=== PATIENT | male | born 1930 | race Caucasian/White ===

== ENCOUNTER 2017-07-17 11:20 | Inpatient (IN) | payer MEDICARE ==
[~2017-07-17] VITALS: Ht 175.3 cm; Wt 75.2 kg
[2017-07-17 11:27] VITALS: BP 161/78; PULSE 71; RESP 16; TEMP 97.8; O2SAT 99
--- NOTE | 2017-07-17 11:51 | PD ---
HPI Chief Complaint: General Weakness Time Seen by Provider: 11:40 Travel History International Travel<30 days: No Contact w/Intl Traveler<30days: No Traveled to known affect area: No History of Present Illness HPI This patient developed garbled speech and aphasia 4 days ago. Around 9 PM. He also had weakness in his legs at that time. He went to bed and woke up in the morning feeling back to his usual self. He drove down from [place] as a snowbird. Morning he woke up with the same symptoms of garbled speech and difficulty finding words and some generalized type weakness. No sensory loss. No headache. He takes Coumadin for history of A. fib. No prior history of neurologic disease. Duration waxing and waning over 4 days. No alleviating factors. No exacerbating factors. PFSH Social History Alcohol Use: No Tobacco Use: No Substance Use: No Review of Systems General / Constitutional: No: Fever Eyes: No: Visual changes HENT: No: Headaches Cardiovascular: Positive: Irregular Rhythm, No: Chest Pain or Discomfort Respiratory: No: Shortness of Breath Gastrointestinal: No: Abdominal Pain Genitourinary: No: Dysuria Musculoskeletal: No: Pain Skin: No Rash Neurologic: Positive: Weakness, Slurred Speech Psychiatric: No: Depression Endocrine: No: Polydipsia Hematologic/Lymphatic: No: Easy Bruising Physical Exam Narrative GENERAL: Well-nourished, well-developed patient in no apparent distress. SKIN: Focused skin assessment reveals no rash and nodules. Skin is Warm and dry. HEAD: Atraumatic. Normocephalic. EYES: Pupils equal and round. No scleral icterus. No injection or drainage. ENT: No nasal bleeding or discharge. Mucous membranes pink and moist. NECK: Trachea midline. No JVD. CARDIOVASCULAR: Irregularly irregular rhythm. No murmur appreciated. RESPIRATORY: No accessory muscle use. Clear to auscultation. Breath sounds equal bilaterally. GASTROINTESTINAL: Abdomen soft, non-tender, nondistended. Hepatic and splenic margins not palpable. MUSCULOSKELETAL: No obvious deformities. No clubbing. No cyanosis. No edema. NEUROLOGICAL: Awake and alert. No obvious cranial nerve deficits. Motor grossly within normal limits. Speech is very abnormal. It is garbled and he seems to have some word salad, difficulty finding the right word. He does not seem confused. I don't see a definite facial droop PSYCHIATRIC: Appropriate mood and affect; insight and judgment normal. Data Data Last Documented VS Vital Signs Date Time Temp Pulse Resp B/P (MAP) Pulse Ox O2 Delivery O2 Flow Rate FiO2 07/17/17 11:27 97.8 71 16 161/78 (105) 99 Orders Orders Prothrombin Time / Inr (Pt) (07/17/17 11:46) Complete Blood Count With Diff (07/17/17 11:46) Basic Metabolic Panel (Bmp) (07/17/17 11:46) Ct Brain W/O Iv Contrast(Rout) (07/17/17 11:46) Ecg Monitoring (07/17/17 11:46) Iv Access Insert/Monitor (07/17/17 11:46) Oximetry (07/17/17 11:46) Admit Order (Ed Use Only) (07/17/17 12:53) Labs Laboratory Tests Test 07/17/17 12:08 White Blood Count 6.0 TH/MM3 Red Blood Count 4.26 MIL/MM3 Hemoglobin 10.1 GM/DL Hematocrit 32.6 % Mean Corpuscular Volume 76.6 FL Mean Corpuscular Hemoglobin 23.8 PG Mean Corpuscular Hemoglobin Concent 31.1 % Red Cell Distribution Width 16.3 % Platelet Count 257 TH/MM3 Mean Platelet Volume 8.9 FL Neutrophils (%) (Auto) 69.4 % Lymphocytes (%) (Auto) 14.4 % Monocytes (%) (Auto) 12.3 % Eosinophils (%) (Auto) 2.7 % Basophils (%) (Auto) 1.2 % Neutrophils # (Auto) 4.1 TH/MM3 Lymphocytes # (Auto) 0.9 TH/MM3 Monocytes # (Auto) 0.7 TH/MM3 Eosinophils # (Auto) 0.2 TH/MM3 Basophils # (Auto) 0.1 TH/MM3 CBC Comment AUTO DIFF Prothrombin Time 28.2 SEC Prothromb Time International Ratio 2.8 RATIO Blood Urea Nitrogen 16 MG/DL Creatinine 1.10 MG/DL Random Glucose 126 MG/DL Calcium Level 8.6 MG/DL Sodium Level 138 MEQ/L Potassium Level 4.1 MEQ/L Chloride Level 103 MEQ/L Carbon Dioxide Level 25.9 MEQ/L Anion Gap 9 MEQ/L Estimat Glomerular Filtration Rate 63 ML/MIN MDM Medical Decision Making Medical Screen Exam Complete: Yes Emergency Medical Condition: Yes Medical Record Reviewed: Yes Differential Diagnosis Intracranial hemorrhage, ischemic CVA, TIA Narrative Course I have reviewed the patient's electronic medical record. IV placed CBC shows minor anemia Metabolic profile is normal INR on Coumadin is 2.8 Extended cardiac monitoring reveals A. fib which is chronic but rate controlled Brain CT is negative Patient symptoms started 4 days ago. He also woke up this morning with the speech deficits. Therefore he clearly is not a stroke alert and is not in any sort of 4-6 hour window. He is not a TPA candidate. He has persistent neurologic deficit consistent with acute ischemic stroke Reviewed with Dr. Edwards will admit for further neurologic evaluation Diagnosis Primary Impression: Neurologic deficit due to acute ischemic cerebrovascular accident (CVA) Admitting Information Admitting Physician Requests: Admit Bry Gama MD Jul 17, 2017 11:51
[2017-07-17 12:30] LABS: AUTOMATED NEUTROPHIL # 4.1 TH/MM3 (1.8-7.7); BASOPHIL # 0.1 TH/MM3 (0-0.2); BASOPHIL % 1.2 % (0.0-2.0); EOSINOPHIL # 0.2 TH/MM3 (0-0.4); EOSINOPHIL % 2.7 % (0.0-4.0); HEMATOCRIT 32.6 % (39.0-51.0); HEMOGLOBIN 10.1 GM/DL (13.0-17.0); LYMPH % 14.4 % (9.0-44.0); LYMPHOCYTE # 0.9 TH/MM3 (1.0-4.8); MEAN CELL VOLUME 76.6 FL (80.0-100.0); MEAN CORPUSCULAR HEMOGLOBIN 23.8 PG (27.0-34.0); MEAN CORPUSCULAR HGB CONC 31.1 % (32.0-36.0); MEAN PLATELET VOLUME 8.9 FL (7.0-11.0); MONO % 12.3 % (0.0-8.0); MONOCYTE # 0.7 TH/MM3 (0-0.9); NEUT % 69.4 % (16.0-70.0); PLATELET COUNT 257 TH/MM3 (150-450); RED BLOOD COUNT 4.26 MIL/MM3 (4.50-5.90); RED CELL DISTRIBUTION WIDTH 16.3 % (11.6-17.2)
--- NOTE | 2017-07-17 12:31 | RADRPT ---
EXAM DATE/TIME: 07/17/2017 12:07 [facility] COMPARISON: No previous studies available for comparison. INDICATIONS : Intermittent garbled speech and aphasia x 4 days. Fell this morning. Evaluate for cerebrovascula r accident. RADIATION DOSE: 64.87 CTDIvol (mGy) MEDICAL HISTORY : None SURGICAL HISTORY : None. ENCOUNTER: Initial ACUITY: 4 - 6 days PAIN SCALE: 4/10 LOCATION: cranial TECHNIQUE: Multiple contiguous axial images were obtained of the head. Using automated exposure control and adj ustment of the mA and/or kV according to patient size, radiation dose was kept as low as reasonably a chievable to obtain optimal diagnostic quality images. DICOM format image data is available electro nically for review and comparison. FINDINGS: CEREBRUM: The ventricles are normal for age. No evidence of midline shift, mass lesion, hemorrhage or acute in farction. No extra-axial fluid collections are seen. POSTERIOR FOSSA: The cerebellum and brainstem are intact. The 4th ventricle is midline. The cerebellopontine angle i s unremarkable. EXTRACRANIAL: The visualized portion of the orbits is intact. Right ethmoid and maxillary sinus disease. SKULL: The calvaria is intact. No evidence of skull fracture. CONCLUSION: 1. No acute intracranial abnormalities. Partial opacification ethmoid air cells. Mucosal thickening r ight maxillary sinus. Tremayne Kennedy MD on July 17, 2017 at 12:27 Board Certified Radiologist. This report was verified electronically.
[2017-07-17 12:41] LABS: CALCIUM 8.6 MG/DL (8.5-10.1); INTERNATIONAL NORMALIZED RATIO 2.8 RATIO; PROTHROMBIN TIME - PATIENT 28.2 SEC (9.8-11.6)
[2017-07-17 12:42] LABS: BICARBONATE 25.9 MEQ/L (21.0-32.0)
[2017-07-17 12:45] LABS: CREATININE 1.1 MG/DL (0.60-1.30)
[2017-07-17 13:34] VITALS: BP 152/76; PULSE 75; RESP 18; O2SAT 96
[2017-07-17 13:35] LABS: STOMATOCYTES 1+ (NORMAL)
[2017-07-17 15:05] VITALS: BP 129/69; PULSE 68; RESP 18; TEMP 100.8; O2SAT 95
--- NOTE | 2017-07-17 15:15 | HHI.HP ---
HPI Service [facility] Primary Care Physician Unknown Admission Diagnosis acute ischemic CVA Diagnoses: Chief Complaint: garbled speech Travel History International Travel<30 Days: No Contact w/Intl Traveler <30 Da: No Traveled to Known Affected Are: No History of Present Illness This patient a very pleasant 87-year-old [facility] gentleman who arrived in our emergency room 4 days after some garbled speech occurred. His is at the bedside and reports that he return back from an extended stay in [place] where he is originally from the beginning of June. On the they drove from [place] to [place] and began having some garbled speech. He stumbled and fell but he would back to sleep and his let him rest. The next morning he was back to normal. This morning however the garbled speech returned and the patient lost his balance again. He is now in the emergency room with significant expressive aphasia however he is aware that his warts or not making sense. About every third word is miscellaneous. He has not had any headache or fever. He reports 4 days of congestion and a choking in his chest. His says he thinks he has a cold because she is coughing to. There have been no fevers or chills. He does have atrial fibrillation for which she takes Coumadin as well as cardiac disease. He has a stent. His medications are not available at this time. He has not remember any allergies the patient has been recommended for further evaluation by the neurological medical teams Review of Systems Constitutional: DENIES: Diaphoretic episodes, Fatigue, Fever, Weight gain, Weight loss, Chills, Dizziness, Change in appetite, Night Sweats Endocrine: DENIES: Heat/cold intolerance, Polydipsia, Polyuria, Polyphagia Eyes: DENIES: Blurred vision, Diplopia, Eye inflammation, Eye pain, Vision loss , Photosensitivity, Double Vision Ears, nose, mouth, throat: DENIES: Tinnitus, Hearing loss, Vertigo, Nasal discharge, Oral lesions, Throat pain, Hoarseness, Ear Pain, Running Nose, Epistaxis, Sinus Pain, Toothache, Odynophagia Respiratory: DENIES: Apneas, Cough, Snoring, Wheezing, Hemoptysis, Sputum production, Shortness of breath Cardiovascular: DENIES: Chest pain, Palpitations, Syncope, Dyspnea on Exertion , PND, Lower Extremity Edema, Orthopnea, Claudication Gastrointestinal: DENIES: Abdominal pain, Black stools, Bloody stools, Constipation, Diarrhea, Nausea, Vomiting, Difficulty Swallowing, Anorexia Genitourinary: DENIES: Sexual dysfunction, Urinary frequency, Urinary incontinence, Urgency, Hematuria, Dysuria, Nocturia, Penile Discharge, Testicular Pain, Testicular Swelling Musculoskeletal: DENIES: Joint pain, Muscle aches, Stiffness, Joint Swelling, Back pain, Neck pain Hematologic/lymphatic: DENIES: Bruising, Lymphadenopathy Immunologic/allergic: DENIES: Eczema, Urticaria Neurologic: COMPLAINS OF: Speech Problems, Poor Balance, DENIES: Abnormal gait , Headache, Localized weakness, Paresthesias, Seizures, Tremor Psychiatric: DENIES: Anxiety, Confusion, Mood changes, Depression, Hallucinations, Agitation, Suicidal Ideation, Homicidal Ideation, Delusions Except as stated in HPI: all other systems reviewed are Neg Past Family Social History Past Medical History Atrial fibrillation Past Surgical History Rotator cuff Cardiac stent Bilateral hip Reported Medications Reviewed in the EMR however the list is unavailable Patient does not recall his medications and does take warfarin Active Ordered Medications Reviewed in the EMR Family History No strokes, diabetes or hypertension All his family is in [place] Social History No tobacco or alcohol dependency Lives in [place] half year and drives in and RV with his family Physical Exam Vital Signs Vital Signs Date Time Temp Pulse Resp B/P (MAP) Pulse Ox O2 Delivery O2 Flow Rate FiO2 07/17/17 13:34 75 18 152/76 (101) 96 Room Air 07/17/17 11:27 97.8 71 16 161/78 (105) 99 Physical Exam GENERAL: This is a well-nourished, well-developed patient, in no apparent distress. SKIN: No rashes, ecchymoses or lesions. Cool and dry. HEAD: Atraumatic. Normocephalic. No temporal or scalp tenderness. EYES: Pupils equal round and reactive. Extraocular motions intact. No scleral icterus. No injection or drainage. ENT: Nose without bleeding, purulent drainage or septal hematoma. Throat without erythema, tonsillar hypertrophy or exudate. Uvula midline. Airway patent. NECK: Trachea midline. No JVD or lymphadenopathy. Supple, nontender, no meningeal signs. CARDIOVASCULAR: Regular rate and rhythm without murmurs, gallops, or rubs. RESPIRATORY: Clear to auscultation. Breath sounds equal bilaterally. No wheezes , rales, or rhonchi. GASTROINTESTINAL: Abdomen soft, non-tender, nondistended. No hepato-splenomegaly , or palpable masses. No guarding. MUSCULOSKELETAL: Extremities without clubbing, cyanosis, or edema. No joint tenderness, effusion, or edema noted. No calf tenderness. Negative Homans sign bilaterally. NEUROLOGICAL: Awake and alert. Cranial nerves II through XII intact. Motor and sensory grossly within normal limits. Five out of 5 muscle strength in all muscle groups. Expressive aphasia Laboratory Laboratory Tests Test 07/17/17 12:08 White Blood Count 6.0 Red Blood Count 4.26 Hemoglobin 10.1 Hematocrit 32.6 Mean Corpuscular Volume 76.6 Mean Corpuscular Hemoglobin 23.8 Mean Corpuscular Hemoglobin Concent 31.1 Red Cell Distribution Width 16.3 Platelet Count 257 Mean Platelet Volume 8.9 Neutrophils (%) (Auto) 69.4 Lymphocytes (%) (Auto) 14.4 Monocytes (%) (Auto) 12.3 Eosinophils (%) (Auto) 2.7 Basophils (%) (Auto) 1.2 Neutrophils # (Auto) 4.1 Lymphocytes # (Auto) 0.9 Monocytes # (Auto) 0.7 Eosinophils # (Auto) 0.2 Basophils # (Auto) 0.1 CBC Comment AUTO DIFF Differential Comment AUTO DIFF CONFIRMED Platelet Estimate NORMAL Platelet Morphology Comment NORMAL Stomatocytes 1+ Prothrombin Time 28.2 Prothromb Time International Ratio 2.8 Blood Urea Nitrogen 16 Creatinine 1.10 Random Glucose 126 Calcium Level 8.6 Sodium Level 138 Potassium Level 4.1 Chloride Level 103 Carbon Dioxide Level 25.9 Anion Gap 9 Estimat Glomerular Filtration Rate 63 Result Diagram: 07/17/17 1208 07/17/17 1208 Imaging Last Impressions Head CT 07/17/17 1146 Signed Impressions: Service Date/Time: July 12:07 - CONCLUSION: 1. No acute intracranial abnormalities. Partial opacification ethmoid air cells. Mucosal thickening right maxillary sinus. MD Mya James VTE Risk Assessment Caprini VTE Risk Assessment: Mod/High Risk (score >= 2) Caprini Risk Assessment Model Point Value = 1 Point Value = 2 Point Value = 3 Point Value = 5 Age 41-60 Minor surgery BMI > 25 kg/m2 Swollen legs Varicose veins or History of unexplained or recurrent spontaneous Oral contraceptives or hormone replacement Sepsis (< 1 month) Serious lung disease, including pneumonia (< 1 month) Abnormal pulmonary function Acute myocardial infarction Congestive heart failure (< 1 month) History of inflammatory bowel disease Medical patient at bed rest Age 61-74 Arthroscopic surgery Major open surgery (> 45 min) Laparoscopic surgery (> 45 min) Malignancy Confined to bed (> 72 hours) Immobilizing plaster cast Central venous access Age >= 75 History of VTE Family history of VTE Factor V Leiden Prothrombin [id number] Lupus anticoagulant Anticardiolipin antibodies Elevated serum homocysteine Heparin-induced thrombocytopenia Other congenital or acquired thrombophilia Stroke (< 1 month) Elective arthroplasty Hip, pelvis, or leg fracture Acute spinal cord injury (< 1 month) Prophylaxis Regimen Total Risk Factor Score Risk Level Prophylaxis Regimen 0-1 Low Early ambulation 2 Moderate Order ONE of the following: *Sequential Compression Device (SCD) *Heparin 5000 units SQ BID 3-4 Higher Order ONE of the following medications: *Heparin 5000 units SQ TID *Enoxaparin/Lovenox 40 mg SQ daily (WT < 150 kg, CrCl > 30 mL/min) *Enoxaparin/Lovenox 30 mg SQ daily (WT < 150 kg, CrCl > 10-29 mL/min) *Enoxaparin/Lovenox 30 mg SQ BID (WT < 150 kg, CrCl > 30 mL/min) AND/OR *Sequential Compression Device (SCD) 5 or more Highest Order ONE of the following medications: *Heparin 5000 units SQ TID (Preferred with Epidurals) *Enoxaparin/Lovenox 40 mg SQ daily (WT < 150 kg, CrCl > 30 mL/min) *Enoxaparin/Lovenox 30 mg SQ daily (WT < 150 kg, CrCl > 10-29 mL/min) *Enoxaparin/Lovenox 30 mg SQ BID (WT < 150 kg, CrCl > 30 mL/min) AND *Sequential Compression Device (SCD) Assessment and Plan Problem List: (1) Afib ICD Code: I48.91 - Unspecified atrial fibrillation Plan: Patient takes warfarin Rate is controlled (2) Neurologic deficit due to acute ischemic cerebrovascular accident (CVA) ICD Code: I63.9 - Cerebral infarction, unspecified; R29.818 - Other symptoms and signs involving the nervous system Status: Acute Plan: Rule out stroke patient with expressive aphasia and imaging are pending All of the electrolytes INR 2.8 and patient is anticoagulated Physician Certification 2 Midnight Certification Type: Admission for Inpatient Services Order for Inpatient Services The services are ordered in accordance with Medicare regulations or non- Medicare payer requirements, as applicable. In the case of services not specified as inpatient-only, they are appropriately provided as inpatient services in accordance with the 2-midnight benchmark. Estimated LOS (days): 2 2 days is the estimated time the patient will need to remain in the hospital, assuming treatment plan goals are met and no additional complications. Post-Hospital Plan: Humaira Morris MD Jul 17, 2017 15:15
[2017-07-17 16:30] VITALS: BP 157/76; PULSE 70; RESP 24; TEMP 101.1; O2SAT 95
[2017-07-17] MEDS ORDERED: ACETAMINOPHEN 325 MG TAB PO PRN (17:15)
[2017-07-17] MEDS ORDERED: IOHEXOL 350 MG/ML 10 ML VIAL (for RAD DIAG) IVCONTRAST ONE (18:30)
--- NOTE | 2017-07-17 18:58 | RADRPT ---
EXAM DATE/TIME: 07/17/2017 18:42 [facility] COMPARISON: No previous studies available for comparison. INDICATIONS : Short of breath and productive cough since this morning. MEDICAL HISTORY : None. SURGICAL HISTORY : None. ENCOUNTER: Initial ACUITY: 1 day PAIN SCORE: 0/10 LOCATION: Bilateral chest FINDINGS: There is cardiomegaly and reticular nodular infiltrate seen in the right mid to lower lung zone and t o a lesser extent left mid to lower lung. Mild diffuse interstitial prominence. Osseous structures de monstrate high riding humeral heads bilaterally consistent with rotator cuff pathology. CONCLUSION: Bilateral interstitial and reticular nodular infiltrates. Scott Valdes MD on July 17, 2017 at 18:55 Board Certified Radiologist. This report was verified electronically.
--- NOTE | 2017-07-17 19:11 | MB ---
cc: ISAÍAS ORDONEZ MD DATE OF CONSULTATION 07/17/17 REASON FOR CONSULTATION "Brain attack." HISTORY OF PRESENT ILLNESS Mr. Gutierrez is a 89-year-old [place] male who arrived to [facility] emergency room this morning because of his slurred speech that has been ongoing for four days. The patient is a poor historian, however, the who is at the bedside reports that he recently returned back from [place] where he is originally from at the beginning of June and on July 13, he drove from [place] to [place] and began having some slurred speech. She reports that he was unsteady and fell two times. The next morning he was normal , but again this morning his slurred speech and unsteadiness and imbalance started again. The patient denies headache, double vision, numbness of the face or weakness of an extremity. However, he reports dizziness, nausea and, during the encounter, he was nauseated with retching but no vomiting. The thinks that he has a cold. The patient denies any history of stroke or recent head injury. REVIEW OF SYSTEMS A 12-point review of systems is negative except for what is stated in the HPI. PAST MEDICAL HISTORY Atrial fibrillation on Coumadin. PAST SURGICAL HISTORY 1. Rotator cuff surgery 2. Cardiac stents 3. Bilateral hip replacement. MEDICATIONS Coumadin. FAMILY HISTORY Not relevant. SOCIAL HISTORY Denies tobacco, alcohol or illicit drugs. PHYSICAL EXAMINATION GENERAL: Awake, alert, poor historian, slurred speech. Mild distress due to nausea. HEENT: Atraumatic, normocephalic. [id number]. intact vision. NECK: Supple. No signs of meningeal irritation. CARDIOVASCULAR: Regular rate and rhythm. RESPIRATORY: Clear to auscultation. No wheezes. GASTROINTESTINAL: Soft abdomen, nontender. MUSCULOSKELETAL: No clubbing, cyanosis or edema. NEUROLOGIC: Awake, alert, oriented to time, person and place, dysarthria. Mild deviation of the tongue to the right sluggish, bilateral elevation and subtle horizontal nystagmus to the right greater than the left, no diplopia. No ptosis. No dysphasia. Upper and lower extremity 5/5 with some give-away due to pain secondary to rheumatoid arthritis. Sensation is intact throughout. Reflexes 1+ bilateral symmetrical. Plantars are bilaterally downgoing. Finger- nose, past-pointing dysmetria, left greater than right. [id number] abnormal bilateral. PSYCHIATRIC: Normal mood and behavior. Mild distress due to nausea. No hallucinations. LABORATORY DATA White blood cell six, hemoglobin 10, platelets 257. BUN 16, creatinine 1.1, random glucose 156, calcium 8.6, sodium 138, potassium 4.1, anion gap nine. IMAGING STUDIES - Head CT scan without contrast was reported with no acute intracranial abnormalities, partial opacification of ethmoid air cells because of thickening right maxillary sinus. - I personally reviewed the head CT scan that showed moderate to severe cortical atrophy with dilated ventricles, no midline shift. Probable/ questionable hypodensity in the right cerebellar region. Diagnostic Impression: Possible posterior circulation stroke given the speech difficulty, nystagmus, incoordination and abnormal cerebellar function upper and lower extremities with history of coronary artery disease, atrial fibrillation on Coumadin. PLAN 1. I discussed the case with the registered nurse and I explained to the that the patient needs to be transferred to an intensive care unit for close monitoring of the vital signs because of a suspicion of posterior circulation stroke. 2. Main goal blood pressure 135-140/75-80. 3. Fall precautions. 4. MRI brain with and without contrast, MRA head with and without contrast, carotid ultrasound. 5. In the condition, the patient cannot perform MRI due to metal/hip replacement then he can proceed to a CTA head and CTA neck with contrast. 5. Nothing by mouth 6. Speech therapy recommendations are appreciated. 7. Physical therapy recommendations are appreciated. 8. Telemetry. 9. Cardiac echo. 10. Aspirin 325 mg. 11. DVT prophylaxis Thank you for the opportunity to participate in the care of your patient. MD PHILOMENA Gonzalez/ /5:01 PM /6:34 PM PAL
--- NOTE | 2017-07-17 19:28 | RADRPT ---
EXAM DATE/TIME: 07/17/2017 18:25 [facility] COMPARISON: CT BRAIN W/O CONTRAST, July 17, 2017, 12:07. INDICATIONS : Intermittent garbled speech and aphasia x 4 days. Fell this morning. Evaluate for cerebrovascular a ccident. IV CONTRAST: 85 cc Omnipaque 350 (iohexol) IV ; Cumulative dose for multiple exams. RADIATION DOSE: 42.25 CTDIvol (mGy) ; Combined studies MEDICAL HISTORY : None SURGICAL HISTORY : None. ENCOUNTER: Initial ACUITY: 1 day PAIN SCALE: 0/10 LOCATION: cranial TECHNIQUE: Volumetric scanning was performed using a multi-row detector CT scanner. The data was post processed with a variety of visualization algorithms including full volume maximum intensity projection, multi -planar sliding thin slab reformation, curved planar reformation, and surface rendering techniques. Using automated exposure control and adjustment of the mA and/or kV according to patient size, radiat ion dose was kept as low as reasonably achievable to obtain optimal diagnostic quality images. DICO M format image data is available electronically for review and comparison. FINDINGS: There is excellent visualization of the major intracranial arteries out to the second-order branch ve ssels. There is no evidence for aneurysm, vessel truncation or stenosis, and no evidence for vascula r malformation. The thyroid is heterogeneous and multinodular including a nodule at the midline measuring 1.8 x 2.2 c m on axial image 26. CONCLUSION: No intracranial stenosis or aneurysm identified. Scott Valdes MD on July 17, 2017 at 19:21 Board Certified Radiologist. This report was verified electronically.
--- NOTE | 2017-07-17 19:31 | RADRPT ---
EXAM DATE/TIME: 07/17/2017 18:25 [facility] COMPARISON: CTA BRAIN W 3D RECON, July 17, 2017, 18:25. CT BRAIN W/O CONTRAST, July 17, 2017, 12:07. INDICATIONS : Intermittent garbled speech and aphasia x 4 days. Fell this morning. Evaluate for cerebrovascular a ccident. IV CONTRAST: 85 cc Omnipaque 350 (iohexol) IV ; Cumulative dose for multiple exams. RADIATION DOSE: 42.25 CTDIvol (mGy) ; Combined studies MEDICAL HISTORY : None SURGICAL HISTORY : None. ENCOUNTER: Initial ACUITY: 1 day PAIN SCALE: 0/10 LOCATION: neck Elevated flow velocities and ICA/CCA ratios have been found to correlate with increased degrees of vessel stenosis, calculated as percentage of diameter relative to a normal segment of distal ICA/CCA. TECHNIQUE: Volumetric scanning was performed using a multirow detector CT scanner. The data was post processed with a variety of visualization algorithms including full-volume maximum intensity projection, multip lanar sliding thin-slab reformation, curved-planar reformation, and surface-rendering techniques. Us ing automated exposure control and adjustment of the mA and/or kV according to patient size, radiatio n dose was kept as low as reasonably achievable to obtain optimal diagnostic quality images. DICOM f ormat image data is available electronically for review and comparison. FINDINGS: AORTIC ARCH: There is a three-vessel origin of the great vessels from the aorta. No evidence of ostial narrowing. There is circumferential nonhemodynamically significant calcific plaque at the origin of the right s ubclavian artery. RIGHT CAROTID: The common carotid artery is intact. The carotid bulb has a normal configuration without ulceration o r narrowing. The internal carotid artery lumen is smooth without stenosis. The external carotid andres ry is intact. Mild calcific plaquing at the bifurcation. LEFT CAROTID: The common carotid artery is intact. The carotid bulb has a normal configuration without ulceration or narrowing. The internal carotid artery lumen is smooth without stenosis. The external carotid ar terry is intact. Mild calcific plaquing at the bifurcation. VERTEBRALS: The vertebral arteries have a symmetric diameter. No stenotic lesions are seen. CONCLUSION: Mild atherosclerosis without evidence for hemodynamically significant stenosis. 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 Scott Valdes MD on July 17, 2017 at 19:28 Board Certified Radiologist. This report was verified electronically.
[2017-07-17 20:00] VITALS: BP 158/67; PULSE 68; RESP 26; TEMP 98.3; O2SAT 96
[2017-07-18] VITALS (11 sets, daily range): BP systolic 110–136; BP diastolic 59–76; PULSE 52–74; RESP 14–30; TEMP 97.2–98.8; O2SAT 91–96
[2017-07-18 06:17] LABS: INTERNATIONAL NORMALIZED RATIO 2.1 RATIO; PROTHROMBIN TIME - PATIENT 21.4 SEC (9.8-11.6)
[2017-07-18] MEDS ORDERED: WARF-23 PO (09:02)
[2017-07-18] MEDS ORDERED: LANO0.252 PO (09:02)
[2017-07-18] MEDS ORDERED: RAMI2.5C PO (09:02)
[2017-07-18] MEDS ORDERED: CARV3.12 PO (09:02)
[2017-07-18] MEDS ORDERED: FURO1TAB62 PO (09:02)
[2017-07-18] MEDS ORDERED: VITA10002 PO (09:02)
[2017-07-18] MEDS ORDERED: POTA-255 PO (09:02)
[2017-07-18] MEDS ORDERED: NON-FORMULARY DRUG (Potassium Gluconate (Potassium) 1 TAB) PO SCH (14:30)
--- NOTE | 2017-07-18 14:39 | ECHRPT ---
Indication: CVA/TIA CONCLUSIONS Normal left ventricular size. Wall thickness is normal. The left ventricular systolic function is grossly normal on limited imaging. The left atrial size is pjaestzg-sw-itgccuib dilated. The right atrial size is moderately dilated. Anterior mitral valve leaflet prolapse. The mitral valve regurgitation jet is directed posteriorly. Moderate mitral valve regurgitation. There is moderate to severe tricuspid valve regurgitation. The estimated pulmonary arterial pressure is 42.3 mmHg. Trivial pulmonary valve regurgitation. BP: 110 / 63 HR: 52 Rhythm: Sinus MEASUREMENTS (Male / Female) Normal Values Technical Quality:Fair 2D ECHO LV Diastolic Diameter PLAX 5.6 cm 4.2 - 5.9 / 3.9 - 5.3 cm LV Systolic Diameter PLAX 3.6 cm IVS Diastolic Thickness 0.9 cm 0.6 - 1.0 / 0.6 - 0.9 cm LVPW Diastolic Thickness 0.9 cm 0.6 - 1.0 / 0.6 - 0.9 cm LV Relative Wall Thickness 0.3 RV Internal Dim ED PLAX 2.8 cm LVOT Diameter 2.2 cm Aortic Root Diameter 3.3 cm LA Systolic Diameter LX 3.9 cm 3.0 - 4.0 / 2.7 - 3.8 cm LA Volume Index 113.4 cm/m 16 - 28 cm/m M-MODE AV Cusp Separation MM 1.9 cm DOPPLER AV Peak Velocity 152.0 cm/s AV Peak Gradient 9.2 mmHg AV Mean Gradient 5.0 mmHg AV Velocity Time Integral 30.3 cm LVOT Peak Velocity 88.7 cm/s LVOT Peak Gradient 3.1 mmHg LVOT Velocity Time Integral 15.1 cm LVOT Cardiac Index 1584.2 cm/minm AV Area Cont Eq vti 1.9 cm AV Area Cont Eq pk 2.2 cm Mitral E Point Velocity 125.0 cm/s Mitral A Point Velocity 44.9 cm/s Mitral E to A Ratio 2.8 LV E' Lateral Velocity 11.2 cm/s Mitral E to LV E' Lateral Ratio 11.2 LV E' Septal Velocity 9.1 cm/s Mitral E to LV E' Septal Ratio 13.8 TR Peak Velocity 284.0 cm/s TR Peak Gradient 32.3 mmHg Right Atrial Pressure 10.0 mmHg Pulmonary Artery Systolic Pressu 42.3 mmHg Right Ventricular Systolic Press 42.3 mmHg PV Peak Velocity 69.9 cm/s PV Peak Gradient 2.0 mmHg FINDINGS LEFT VENTRICLE Normal left ventricular size. Wall thickness is normal. The left ventricular systolic function is grossly normal on limited imaging. RIGHT VENTRICLE Normal right ventricular size and systolic function. LEFT ATRIUM The left atrial size is ckyftdjw-nd-ztozlnmr dilated. RIGHT ATRIUM The right atrial size is moderately dilated. ATRIAL SEPTUM Normal atrial septal thickness without atrial level shunting by limited color doppler interrogation. AORTA The aortic root and proximal ascending aorta are normal in size on limited imaging. MITRAL VALVE Anterior mitral valve leaflet prolapse. The mitral valve regurgitation jet is directed posteriorly. Moderate mitral valve regurgitation. AORTIC VALVE Trileaflet aortic valve. No aortic valve stenosis or regurgitation. TRICUSPID VALVE There is moderate to severe tricuspid valve regurgitation. The estimated pulmonary arterial pressure is 42.3 mmHg. PULMONARY VALVE Trivial pulmonary valve regurgitation. VESSELS The inferior vena cava is normal in size. PERICARDIUM No pericardial effusion. Ricki Dyer MD (Electronically Signed) Final Date:18 July 2017 14:38
--- NOTE | 2017-07-18 14:48 | HHI.PR ---
Review/Management Diagnosis - Likely a posterior circulation stroke, given the speech difficulty, nystagmus , incoordination and abnormal cerebellar function upper and lower extremities with history of coronary artery disease, atrial fibrillation on Coumadin. MRI brain was not done. CT scan is less sensitive to show evidence of stroke in this region of the brain Plan - I explained to the patient and that patient needs to follow up with PCP, which he currently does not have, since his PCP is in [place] and the other one is in [place]. - Consult case management, recommendations are appreciated - Goal blood pressure 135-140/75-80. - Fall precautions. - MRI brain with and without contrast. - Speech therapy recommendations are appreciated. - Physical therapy recommendations are appreciated. - Continue Coumadin - Needs rehabilitation for imbalance - Follow up outpatient neurology - Please call for questions Diagnosis/Plan: Subjective Subjective Comments No events reported over night Patient sits on a chair with at bed side Denies double vision, difficulty in swallowing Walked with PT using a walker, with mild imbalance MRI brain was not done due to possible non compatible hip replacement device Head CTA & Neck CTA were reported as unremarkable Active Medications Current Medications Medications (Trade) Dose Ordered Sig/Jocelyn Route Start Time Stop Time Status Last Admin (Tylenol) 650 mg Q4H PRN PO 07/17/17 17:15 (Coreg) 3.125 mg BID PO 07/18/17 21:00 (Vitamin B12) 1,000 mcg DAILY PO 07/18/17 15:00 (Lanoxin) 0.25 mg DAILY PO 07/18/17 15:00 (Lasix) 20 mg BID@0900,1800 PO 07/18/17 18:00 (Altace) 2.5 mg DAILY PO 07/18/17 15:00 (Coumadin) 5 mg DAILY@1600 PO 07/18/17 16:00 Non-Formulary Medication 1 tab DAILY PO 07/18/17 14:30 UNV Ceftriaxone Sodium 1000 mg/ Sodium Chloride 100 ml @ 200 mls/hr Q24H IV 07/18/17 15:00 (Zithromax) 500 mg DAILY PO 07/18/17 15:00 (Mucinex Er) 600 mg BID PO 07/18/17 15:00 Allergies Allergies Coded Allergies No Known Allergies (Verified Allergy, Unknown, 07/17/17) Review of Systems All other ROS: ROS reviewed as documented in chart Exam I&O / VS 07/18/17 07/18/17 07/19/17 15:00 23:00 07:00 Output Total 350 ml Balance -350 ml Output Urine Total 350 ml Vital Signs Date Time Temp Pulse Resp B/P (MAP) Pulse Ox O2 Delivery O2 Flow Rate FiO2 07/18/17 12:00 66 07/18/17 12:00 97.2 66 30 116/64 (81) 96 07/18/17 08:26 97.9 68 28 134/66 (88) 93 07/18/17 08:00 54 07/18/17 04:38 98.2 52 24 110/63 (79) 93 07/18/17 03:37 64 25 121/59 (79) 93 07/18/17 03:26 64 24 132/64 (86) 94 07/18/17 02:40 62 24 121/61 (81) 91 07/18/17 00:00 98.6 54 25 136/64 (88) 93 07/17/17 20:00 98.3 68 26 158/67 (97) 96 07/17/17 16:30 101.1 70 24 157/76 (103) 95 07/17/17 15:05 100.8 68 18 129/69 (89) 95 Room Air Exam Comments GENERAL: Awake, alert, poor historian, mild slurred speech. HEENT: Atraumatic, normocephalic. Kuqa-xx-dyqgktf. intact vision. NECK: Supple. No signs of meningeal irritation. CARDIOVASCULAR: Regular rate and rhythm. RESPIRATORY: Clear to auscultation. No wheezes. GASTROINTESTINAL: Soft abdomen, nontender. MUSCULOSKELETAL: No clubbing, cyanosis or edema. NEUROLOGIC: Awake, alert, oriented to time, person and place, mild dysarthria. No deviation of the tongue, no nystagmus, as opposed to yesterday's evaluation [ horizontal nystagmus to the right greater than the left], no diplopia. No ptosis. No dysphasia. Upper and lower extremity 5/5 with some give-away due to pain secondary to rheumatoid arthritis. Sensation is intact throughout. Reflexes 1+ bilateral symmetrical. Plantars are bilaterally downgoing. Finger nose is intact as opposed to yesterday's evaluation [ Finger-nose, past- pointing dysmetria, left greater than right]. PSYCHIATRIC: Normal mood and behavior. No hallucinations. Objective Radiology Results Last [address] 07/17/17 1146 Signed Impressions: Service Date/Time: July 12:07 - CONCLUSION: 1. No acute intracranial abnormalities. Partial opacification ethmoid air cells. Mucosal thickening right maxillary sinus. Tremayne Kennedy MD Neck CTA 07/17/17 0000 Signed Impressions: Service Date/Time: July 18:25 - CONCLUSION: Mild atherosclerosis without evidence for hemodynamically significant stenosis. 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 Scott Valdes MD Head CTA 07/17/17 0000 Signed Impressions: Service Date/Time: July 18:25 - CONCLUSION: No intracranial stenosis or aneurysm identified. Scott Valdes MD Chest X-Ray 07/17/17 0000 Signed Impressions: Service Date/Time: July 18:42 - CONCLUSION: Bilateral interstitial and reticular nodular infiltrates. Scott Valdes MD Micro and Labs Laboratory Tests Test 07/18/17 04:30 Prothrombin Time 21.4 Prothromb Time International Ratio 2.1 Date/Time Source Procedure Growth Status 07/17/17 19:25 Blood Peripheral Aerobic Blood Culture - Preliminary NO GROWTH IN 1 DAY Resulted 07/17/17 19:25 Blood Peripheral Anaerobic Blood Culture - Preliminary NO GROWTH IN 1 DAY Resulted Deyanira Urbina MD Jul 18, 2017 14:48
--- NOTE | 2017-07-18 15:11 | HHI.PR ---
Subjective Remarks Seen in room. Still with some gait abnormality however speech is back to baseline Chart reviewed Case discussed with neuro Patient seen by PT recommendations for rehabilitation Objective Vitals Vital Signs Date Time Temp Pulse Resp B/P (MAP) Pulse Ox O2 Delivery O2 Flow Rate FiO2 07/18/17 12:00 66 07/18/17 12:00 97.2 66 30 116/64 (81) 96 07/18/17 08:26 97.9 68 28 134/66 (88) 93 07/18/17 08:00 54 07/18/17 04:38 98.2 52 24 110/63 (79) 93 07/18/17 03:37 64 25 121/59 (79) 93 07/18/17 03:26 64 24 132/64 (86) 94 07/18/17 02:40 62 24 121/61 (81) 91 07/18/17 00:00 98.6 54 25 136/64 (88) 93 07/17/17 20:00 98.3 68 26 158/67 (97) 96 07/17/17 16:30 101.1 70 24 157/76 (103) 95 07/17/17 15:05 100.8 68 18 129/69 (89) 95 Room Air I/O 07/17/17 07/17/17 07/17/17 07/18/17 07/18/17 07/18/17 07:00 15:00 23:00 07:00 15:00 23:00 Output Total 0 ml 375 ml 350 ml Balance 0 ml -375 ml -350 ml Output Urine Total 0 ml 375 ml 350 ml Stool Total 0 ml Result Diagram: 07/17/17 1208 07/17/17 1208 Imaging Last Impressions Head CT 07/17/17 1146 Signed Impressions: Service Date/Time: July 12:07 - CONCLUSION: 1. No acute intracranial abnormalities. Partial opacification ethmoid air cells. Mucosal thickening right maxillary sinus. Tremayne Kennedy MD Neck CTA 07/17/17 0000 Signed Impressions: Service Date/Time: July 18:25 - CONCLUSION: Mild atherosclerosis without evidence for hemodynamically significant stenosis. 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 Scott Valdes MD Head CTA 07/17/17 0000 Signed Impressions: Service Date/Time: July 18:25 - CONCLUSION: No intracranial stenosis or aneurysm identified. Scott Valdes MD Chest X-Ray 07/17/17 0000 Signed Impressions: Service Date/Time: July 18:42 - CONCLUSION: Bilateral interstitial and reticular nodular infiltrates. Scott Valdes MD Objective Remarks GENERAL: This is a well-nourished, well-developed patient, in no apparent distress. CARDIOVASCULAR: Regular rate and rhythm without murmurs, gallops, or rubs. RESPIRATORY: Clear to auscultation. Breath sounds equal bilaterally. No wheezes , rales, or rhonchi. GASTROINTESTINAL: Abdomen soft, non-tender, nondistended. Normal active bowel sounds MUSCULOSKELETAL: Extremities without clubbing, cyanosis, or edema. NEURO: Alert & Oriented x4 to person, place, time, situation. unsteady gait A/P Problem List: (1) Afib ICD Code: I48.91 - Unspecified atrial fibrillation Plan: Patient takes warfarin/ digoxin Rate is controlled (2) Neurologic deficit due to acute ischemic cerebrovascular accident (CVA) ICD Code: I63.9 - Cerebral infarction, unspecified; R29.818 - Other symptoms and signs involving the nervous system Status: Acute Plan: possible posterior circulation stroke in this patient with resolution of intermittent expressive aphasia and persistent gait instability imaging are negative INR 2.1 and patient is anticoagulated on warfarin rehab eval echo done, right sided dilation (3) Diastolic heart failure ICD Code: I50.30 - Unspecified diastolic (congestive) heart failure Plan: etiology unknown and without exacerbation cont furosemide, ramipril Discharge Planning Eval for inpatient rehabilitation Humaira Edwards MD Jul 18, 2017 15:11
[2017-07-18] MEDS: WARFARIN SOD 5 MG TAB PO SCH (17:16)
[2017-07-18] MEDS: RAMIPRIL 2.5 MG CAP PO SCH (17:16)
[2017-07-18] MEDS: FUROSEMIDE 20 MG TAB PO SCH (17:16)
[2017-07-18] MEDS: guaiFENesin E.R. 600 MG TAB PO SCH ×2 (17:16→20:11)
[2017-07-18] MEDS: DIGOXIN 0.25 MG TAB PO SCH (17:16)
[2017-07-18] MEDS: AZITHROMYCIN 250 MG TAB PO SCH (17:16)
[2017-07-18] MEDS: CYANOCOBALAMIN 1,000 MCG TAB PO SCH (17:16)
[2017-07-18] MEDS: cefTRIAXone INJ 1,000 MG in SODIUM CHLORIDE 0.9% INJ 100 ML IV SCH (17:19)
[2017-07-18] MEDS: CARVEDILOL 3.125 MG TAB PO SCH (20:11)
[2017-07-18] MEDS: BENZOCAINE-MENTHOL (SUGAR FREE) 15 MG-3.6 MG LOZENGE BUCCAL PRN (22:00)
--- NOTE | 2017-07-18 23:08 | EKG ---
Date Performed: 07/17/2017 Time Performed: 14:08:06 PTAGE: 87 years EKG: ATRIAL FIBRILLATION MARKED RIGHT AXIS DEVIATION LOW QRS VOLTAGE IN EXTREMITY LEADS ST DEPRE SSION, CONSIDER SUBENDOCARDIAL INJURY ABNORMAL ECG NO PREVIOUS TRACING DOCTOR: Roscoe Crocker Interpretating Date/Time 07/18/2017 23:07:13
[2017-07-19] VITALS (7 sets, daily range): BP systolic 116–146; BP diastolic 70–84; PULSE 50–79; RESP 15–20; TEMP 96.5–98; O2SAT 92–95
[2017-07-19] MEDS: BENZONATATE 100 MG CAP PO PRN ×2 (02:28→13:37)
[2017-07-19 06:47] LABS: INTERNATIONAL NORMALIZED RATIO 1.8 RATIO; PROTHROMBIN TIME - PATIENT 18.3 SEC (9.8-11.6)
[2017-07-19] MEDS: CYANOCOBALAMIN 1,000 MCG TAB PO SCH (09:54)
[2017-07-19] MEDS: DIGOXIN 0.25 MG TAB PO SCH (09:55)
[2017-07-19] MEDS: RAMIPRIL 2.5 MG CAP PO SCH (09:55)
[2017-07-19] MEDS: CARVEDILOL 3.125 MG TAB PO SCH ×2 (09:55→20:20)
[2017-07-19] MEDS: guaiFENesin E.R. 600 MG TAB PO SCH ×2 (09:55→20:20)
[2017-07-19] MEDS: AZITHROMYCIN 250 MG TAB PO SCH (09:55)
[2017-07-19] MEDS: FUROSEMIDE 20 MG TAB PO SCH ×2 (09:57→18:34)
[2017-07-19] MEDS: BENZOCAINE-MENTHOL (SUGAR FREE) 15 MG-3.6 MG LOZENGE BUCCAL PRN (09:58)
[2017-07-19] MEDS ORDERED: WALKER WHEELS/F1 MIS (14:57)
[2017-07-19] MEDS: cefTRIAXone INJ 1,000 MG in SODIUM CHLORIDE 0.9% INJ 100 ML IV SCH (15:11)
[2017-07-19] MEDS: WARFARIN SOD 5 MG TAB PO SCH (15:11)
[2017-07-19] MEDS: POTASSIUM CHLORIDE 8 MEQ CONTROLLED RELEASE TAB PO SCH (15:11)
--- NOTE | 2017-07-19 15:34 | HHI.PR ---
Subjective Remarks Nursing denies any deterioration since last night. Patient so says he feels okay. Has no complaints today but he does insist that he does not want to go to an inpatient or alf facility but read rather go home. OT and PT notes suggest inpatient rehabilitation otherwise. Objective Vital Signs Date Time Temp Pulse Resp B/P (MAP) Pulse Ox O2 Delivery O2 Flow Rate FiO2 07/19/17 14:07 97.5 76 18 146/70 (95) 95 07/19/17 09:22 97.3 67 15 146/84 (104) 95 07/19/17 04:40 97.9 70 18 120/78 (92) 93 07/19/17 01:17 97.9 79 16 116/79 (91) 92 07/18/17 20:48 98.8 74 20 125/75 (92) 93 07/18/17 19:51 62 07/18/17 16:00 97.4 67 14 110/76 (87) 95 I/O 07/18/17 07/18/17 07/18/17 07/19/17 07/19/17 07/19/17 07:00 15:00 23:00 07:00 15:00 23:00 Output Total 375 ml 350 ml 1275 ml Balance -375 ml -350 ml -1275 ml Output Urine Total 375 ml 350 ml 1275 ml # Voids 0 # Bowel Movements 0 0 Result Diagram: 07/17/17 1208 07/17/17 1208 Objective Remarks 5 out of 5 strength in proximal upper extremities bilaterally including fistgrip Saw patient and leg with walker and had a moment of some mild gait instability Unlabored breathing otherwise, coarse breath sounds bilaterally A/P Assessment and Plan (1) Afib ICD Code: I48.91 - Unspecified atrial fibrillation Plan: Patient takes warfarin/ digoxin Rate is controlled 1.8 is INR today; continue dosing (2) Neurologic deficit due to acute ischemic cerebrovascular accident (CVA) possible posterior circulation stroke in this patient with resolution of intermittent expressive aphasia and persistent gait instability imaging are negative including repeat head CT from today; INR 1.8; and patient is anticoagulated on warfarin rehab eval echo done, right sided dilation Discussed with physical therapy, they do not feel comfortable signing off on the patient to go home with homecare without reevaluation, anticipate reevaluating in a.m. PNA continue azithromycin and rocephin Masoodi,Samuel Radha MD Jul 19, 2017 15:34
--- NOTE | 2017-07-19 16:33 | RADRPT ---
EXAM DATE/TIME: 07/19/2017 15:43 [facility] COMPARISON: CT BRAIN W/O CONTRAST, July 17, 2017, 12:07. INDICATIONS : CVA follow up with gait disturbance ongoing. RADIATION DOSE: 63.97 CTDIvol (mGy) MEDICAL HISTORY : Cerebrovascular disease. Cardiovascular disease A Fib SURGICAL HISTORY : Bilateral hip ENCOUNTER: Subsequent ACUITY: 3 days PAIN SCALE: 0/10 LOCATION: cranial TECHNIQUE: Multiple contiguous axial images were obtained of the head. Using automated exposure control and adj ustment of the mA and/or kV according to patient size, radiation dose was kept as low as reasonably a chievable to obtain optimal diagnostic quality images. DICOM format image data is available electro nically for review and comparison. FINDINGS: Noncontrast axial head CT demonstrates the ventricles to be enlarged with a prominent sulcal pattern compatible with atrophy. No acute intracranial hemorrhage, acute cortical infarction, mass or midline shift is seen. Posterior fossa structures are unremarkable. Bone windows demonstrate no abnormality. There is a total disease in the ethmoid air cells bilaterall y. There is benign-appearing mucosal disease in the right maxillary sinus.8 CONCLUSION: Atrophy. No evidence of acute intracranial pathology. Grabiel Crawford MD on July 19, 2017 at 16:28 Board Certified Radiologist. This report was verified electronically.
[2017-07-20] VITALS: BP 120/70; PULSE 62; RESP 20; TEMP 96.8; O2SAT 93
[2017-07-20 08:00] VITALS: BP 140/94; PULSE 56; PULSE 61; RESP 18; TEMP 97.4; O2SAT 92
[2017-07-20] MEDS: RAMIPRIL 2.5 MG CAP PO SCH (08:59)
[2017-07-20] MEDS: AZITHROMYCIN 250 MG TAB PO SCH (08:59)
[2017-07-20] MEDS: CARVEDILOL 3.125 MG TAB PO SCH (08:59)
[2017-07-20] MEDS: guaiFENesin E.R. 600 MG TAB PO SCH (08:59)
[2017-07-20] MEDS: CYANOCOBALAMIN 1,000 MCG TAB PO SCH (08:59)
[2017-07-20] MEDS: POTASSIUM CHLORIDE 8 MEQ CONTROLLED RELEASE TAB PO SCH (09:00)
[2017-07-20] MEDS: DIGOXIN 0.25 MG TAB PO SCH (09:00)
[2017-07-20] MEDS: FUROSEMIDE 20 MG TAB PO SCH (09:05)
--- NOTE | 2017-07-20 10:55 | HHI.DCPOC ---
Discharge Care Plan Diagnosis: (1) Neurologic deficit due to acute ischemic cerebrovascular accident (CVA) (2) Afib Additional Problems Have your primary care provider check your Coumadin level within 1 week Goals to Promote Your Health * To prevent worsening of your condition and complications * To maintain your health at the optimal level Directions to Meet Your Goals Take your medications as prescribed Follow your dietary instruction Follow activity as directed Keep your appointments as scheduled Take your immunizations and boosters as scheduled If your symptoms worsen call your PCP, if no PCP go to Urgent Care Center or Emergency Room Smoking is Dangerous to Your Health. Avoid second hand smoke Call the 24-hour hour crisis hotline for domestic abuse at Samuel Horta MD Jul 20, 2017 10:55
[2017-07-20] MEDS ORDERED: CEFU1TAB20 PO (10:57)
[2017-07-20] MEDS ORDERED: AZIT250T3 PO (10:57)
[2017-07-20] MEDS ORDERED: ATOR40TA16 PO (10:57)
--- NOTE | 2017-07-20 10:59 | HHI.DS ---
Discharge Summary Admission Date Jul 17, 2017 at 12:54 Discharge Date: Jul 20, 2017 Admitting Diagnosis acute ischemic CVA (1) Afib ICD Code: I48.91 - Unspecified atrial fibrillation (2) Neurologic deficit due to acute ischemic cerebrovascular accident (CVA) ICD Code: I63.9 - Cerebral infarction, unspecified; R29.818 - Other symptoms and signs involving the nervous system Status: Acute (3) Diastolic heart failure ICD Code: I50.30 - Unspecified diastolic (congestive) heart failure Procedures none Brief History - From Admission This patient a very pleasant 87-year-old [facility] gentleman who arrived in our emergency room 4 days after some garbled speech occurred. His is at the bedside and reports that he return back from an extended stay in [place] where he is originally from the beginning of June. On the they drove from [place] to [place] and began having some garbled speech. He stumbled and fell but he would back to sleep and his let him rest. The next morning he was back to normal. This morning however the garbled speech returned and the patient lost his balance again. He is now in the emergency room with significant expressive aphasia however he is aware that his warts or not making sense. About every third word is miscellaneous. He has not had any headache or fever. He reports 4 days of congestion and a choking in his chest. His says he thinks he has a cold because she is coughing to. There have been no fevers or chills. He does have atrial fibrillation for which she takes Coumadin as well as cardiac disease. He has a stent. His medications are not available at this time. He has not remember any allergies the patient has been recommended for further evaluation by the neurological medical teams CBC/BMP: 07/17/17 1208 07/17/17 1208 Significant Findings Laboratory Tests Test 07/17/17 12:08 07/18/17 04:30 07/19/17 06:27 Red Blood Count 4.26 MIL/MM3 (4.50-5.90) Hemoglobin 10.1 GM/DL (13.0-17.0) Hematocrit 32.6 % (39.0-51.0) Mean Corpuscular Volume 76.6 FL (80.0-100.0) Mean Corpuscular Hemoglobin 23.8 PG (27.0-34.0) Mean Corpuscular Hemoglobin Concent 31.1 % (32.0-36.0) Monocytes (%) (Auto) 12.3 % (0.0-8.0) Lymphocytes # (Auto) 0.9 TH/MM3 (1.0-4.8) Stomatocytes 1+ (NORMAL) Prothrombin Time 28.2 SEC (9.8-11.6) 21.4 SEC (9.8-11.6) 18.3 SEC (9.8-11.6) Random Glucose 126 MG/DL (74-106) Estimat Glomerular Filtration Rate 63 ML/MIN (>89) Imaging Last Impressions Head CT 07/19/17 0000 Signed Impressions: Service Date/Time: Wednesday, July 19, 2017 15:43 - CONCLUSION: Atrophy. No evidence of acute intracranial pathology. Grabiel Crawford MD Neck CTA 07/17/17 0000 Signed Impressions: Service Date/Time: July 18:25 - CONCLUSION: Mild atherosclerosis without evidence for hemodynamically significant stenosis. 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 Scott Valdes MD Head CTA 07/17/17 0000 Signed Impressions: Service Date/Time: July 18:25 - CONCLUSION: No intracranial stenosis or aneurysm identified. Scott Valdes MD Chest X-Ray 07/17/17 0000 Signed Impressions: Service Date/Time: July 18:42 - CONCLUSION: Bilateral interstitial and reticular nodular infiltrates. Scott Valdes MD PE at Discharge ambulating with walker; working with therapy w/ no respiratory distress No facial droop, no slurred speech Hospital Course Patient was admitted started on antiplatelet therapy for strokelike symptoms and antibiotics for pneumonia. Patient did not undergo MRI head imaging due to unclear nature of hip implants which she had done in [place] decades ago; thus he had a repeat head CT which showed no acute stroke. CTA did not show any significant stenosis warranting surgical intervention. Patient's respiratory status has significantly improved. He participated with therapy successfully stopped; patient did not want to proceed with inpatient rehabilitation and he was not a candidate for home healthcare due to not having a primary care physician. Physical therapy did evaluate the patient and cleared for him to be able to go home safely with outpatient physical therapy orders knowing for him to be on blood thinners. Patient was counseled extensively that he does need to follow up with the primary care physician to monitor his Coumadin level especially since he is going to be on antibiotics that will affect it. Patient has met maximal benefit from hospitalization and is clinically stable for discharge. Pt Condition on Discharge: Stable Discharge Disposition: Disch w/ Home Health Serv Discharge Time: <= 30 minutes Discharge Instructions DIET: Follow Instructions for: Coumadin (Warfarin) Diet Additional Diet Instructions: Follow up with PCP in no more than 1 week to have your INR/coumadin level checked. Activities you can perform: Weight Bearing as [place] Other Activity Instructions: Use walker w/ wheels Follow up Referrals: Neurology - 2 Weeks with Deyanira Urbina MD PCP Follow-up New Medications: Atorvastatin (Atorvastatin) 40 Mg Tab 40 MG PO HS for Cholesterol Management, #30 TAB 0 Refills Azithromycin (Azithromycin) 250 Mg Tab 250 MG PO DAILY for Infection, #3 TAB 0 Refills Cefuroxime (Cefuroxime) 500 Mg Tab 500 MG PO BID for Infection, #10 TAB 0 Refills Walker with Front Wheels (Walker with Front Wheels) 1 Mis Mis EA .ROUTE DIRECTED, #1 0 Refills Continued Medications: Carvedilol (Carvedilol) 3.125 Mg Tab 3.125 MG PO BID, #60 TAB 0 Refills Cyanocobalamin (Vitamin B-12) 1,000 Mcg Tab 1000 MCG PO DAILY for Nutritional Supplement, #1 BOTTLE 0 Refills Digoxin (Lanoxin) 250 Mcg Tablet 250 MCG PO DAILY, TAB 0 Refills Furosemide (Lasix) 20 Mg Tab 20 MG PO BID for Blood Pressure Management, #60 TAB 0 Refills Potassium Gluconate (Potassium) 600 Mg (99 Mg) Tablet 1 TAB PO DAILY Ramipril (Ramipril) 2.5 Mg Cap 2.5 MG PO DAILY, #30 CAP 0 Refills Warfarin (Warfarin) 5 Mg Tab 5 MG PO DAILY for Blood Clot Prevention, #30 TAB 0 Refills Samuel Horta MD Jul 20, 2017 10:59
[2017-07-20 11:43] VITALS: BP 121/72; PULSE 71; RESP 20; TEMP 97.3; O2SAT 98
--- NOTE | 2017-07-20 14:04 | HHI.FF ---
Face to Face Verification Diagnosis: (1) Diastolic heart failure (2) Afib (3) Acute ischemic stroke Physical Therapy Order: Evaluate and Treat Occupational Therapy Order: Evaluate and Treat I have seen patient Wilmer Gutierrez on 07/20/17. My clinical findings support the need for the requested home health care services because: Limited ability to care for self I certify that my clinical findings support that this patient is homebound because: Unsafe to leave home unassisted Poor cardiac reserve Samuel Horta MD Jul 20, 2017 14:04
== END 2017-07-20 13:51 | disposition home health service (06) | DRG 64 ==
LOC: PHED 11:20 → PHEDA 12:54 → PH3B 16:09 → PHICU 17:39 → PH3A 07-18 15:06 → UNDODISIN 07-20 11:58
PROVIDERS: ADMIT Hospitalist; ATTEND Hospitalist
DX: I63.9 Cerebral infarction, unspecified (principal); J18.9 Pneumonia, unspecified organism; I50.30 Unspecified diastolic (congestive) heart failure; R47.01 Aphasia; R26.9 Unspecified abnormalities of gait and mobility; I48.2 Chronic atrial fibrillation; Z95.5 Presence of coronary angioplasty implant and graft; Z79.01 Long term (current) use of anticoagulants; Z96.643 Presence of artificial hip joint, bilateral
CPT/HCPCS: 70450; 70496; 70498; 71045; 80048; 80162; 85025; 85610; 87040; 93005; 93306; J0696; Q9967